=== PATIENT | male | born 2000 | race Caucasian/White ===

== ENCOUNTER 2021-03-14 12:29 | Emergency (ER) | payer OTHER ==
[2021-03-14 12:35] VITALS: BP 131/73; PULSE 62; TEMP 98.5; BMI 24.3
[2021-03-14] MEDS ORDERED: IBUPROFEN 600 MG TABLET (FP) PO ONE ×2 (13:16→13:24)
== END 2021-03-14 13:53 | disposition home or self-care (01) ==
LOC: JERFT 12:29
DX: R07.89 Other chest pain (principal)
CPT/HCPCS: 93005; 93010; 99283-25

== ENCOUNTER 2021-04-02 14:55 | Emergency (ER) | payer OTHER ==
[2021-04-02 15:01] VITALS: BP 114/74; PULSE 94; TEMP 98; BMI 24.0
[2021-04-02] MEDS ORDERED: hydrOXYzine PAMOATE 25 MG CAPSULE (FP) PO ONE ×2 (15:52→15:59)
== END 2021-04-02 16:33 | disposition home or self-care (01) ==
LOC: JER 14:55
DX: F41.9 Anxiety disorder, unspecified (principal)
CPT/HCPCS: 71046-TC-FY; 93005; 93010; 99284-25

== ENCOUNTER 2021-09-05 21:01 | Emergency (ER) | payer OTHER ==
[2021-09-05 21:07] VITALS: BP 123/87; PULSE 95; TEMP 98.1; BMI 24.3
[2021-09-05] MEDS ORDERED: LORazepam 2 MG TABLET PO ONE (21:56)
[2021-09-05] MEDS ORDERED: LORazepam 1 MG TABLET ONE (22:01)
== END 2021-09-05 22:09 | disposition home or self-care (01) ==
LOC: JERFT 21:01
DX: F41.9 Anxiety disorder, unspecified (principal)
CPT/HCPCS: 93005; 93010; 99283-25

== ENCOUNTER 2024-06-25 20:40 | Emergency (ER) | payer OTHER ==
[2024-06-25 20:55] VITALS: BMI 25.0
[2024-06-25] MEDS ORDERED: ACETAMINOPHEN 325 MG TABLET (FP) ONE (22:02)
[2024-06-25] MEDS: ACETAMINOPHEN 500 MG TABLET (FP) PO ONE (22:11)
[2024-06-25 22:12] LABS: URINE APPEARANCE CLEAR; URINE BILIRUBIN NEGATIVE (NEGATIVE); URINE COLOR YELLOW; URINE GLUCOSE (UA) NEGATIVE (NEGATIVE); URINE KETONE NEGATIVE (NEGATIVE); URINE LEUK ESTERASE NEGATIVE (NEGATIVE); URINE NITRITE NEGATIVE (NEGATIVE); URINE PROTEIN NEGATIVE (NEGATIVE)
[2024-06-26 00:30] VITALS: BP 119/71; PULSE 64; RESP 13; TEMP 97.6
== END 2024-06-26 00:56 | disposition home or self-care (01) ==
LOC: JER 20:40
DX: N50.811 Right testicular pain (principal); N50.82 Scrotal pain; X50.9XXA Other and unspecified overexertion or strenuous movements or postures, initial encounter; Y99.0 Civilian activity done for income or pay
CPT/HCPCS: 36415; 76870-TC; 81003; 87086; 87491; 87591; 99284-25